=== PATIENT | female | born 1970 | race Caucasian/White ===

== ENCOUNTER 2017-09-02 14:26 | Emergency (ER) | payer BC ==
[~2017-09-02] VITALS: Ht 160 cm; Wt 98.4 kg
[2017-09-02 14:38] VITALS: Ht 160 cm; Wt 98.4 kg
[2017-09-02 17:37] LABS: BASOPHIL % 0.7 % (0-2); RED CELL DISTRIBUTION WIDTH 14.4 % (11.5-14.5)
[2017-09-02 17:40] LABS: PLATELET COUNT 420 x10^3mcL (130-400)
[2017-09-02 17:44] LABS: CHLORIDE SERUM 105 mmol/L (98-107); CREATININE SERUM 0.6 mg/dL (0.6-1.0); GFR1 > 60 mL/min; GLUCOSE SERUM 104 mg/dL (74-106); POTASSIUM SERUM 4.2 mmol/L (3.5-5.1); SODIUM SERUM 141 mmol/L (136-145)
[2017-09-02 17:49] LABS: ALBUMIN 3.6 g/dL (3.4-5.0); ALKALINE PHOSPHATASE 141 U/L (46-116); ALT/SGPT 54 U/L (14-59); AST/SGOT 29 U/L (15-37); BILIRUBIN TOTAL 0.26 mg/dL (0.20-1.00); TOTAL PROTEIN, SERUM 7.8 g/dL (6.4-8.2)
[2017-09-02 18:37] LABS: AMPHETAMINE QUAL UR NONE DETECTED (NEG <=1000)
[2017-09-02 19:04] VITALS: BP 115/68
== END 2017-09-02 19:04 | disposition home or self-care (01) ==
LOC: ED 14:26
PROVIDERS: Emergency Medicine
DX: M79.602 Pain in left arm (principal); Z88.0 Allergy status to penicillin
CPT/HCPCS: 36415; Q0092